=== PATIENT | male | born 1980 | race Caucasian/White ===

== ENCOUNTER 2020-08-01 15:01 | Outpatient (REF) | payer MEDICAID, SELFPAY ==
[2020-08-01 20:35] LABS: HCT 43.4 % (40.0-50.0); HGB 14.3 g/dL (13.5-17.5); MCH 32.3 pg (27.0-33.0); MCHC 32.9 % (32.0-36.0); MPV 10.5 fL (8.0-11.0); Platelet Count 201 10^3/uL (130-400); RBC 4.43 10^6/uL (4.36-5.78); RDW 14.3 % (11.8-14.1); RDW-SD 52.2 fL; WBC 6.14 10^3/uL (4.4-10.8)
[2020-08-01 21:17] LABS: AST 102 U/L (15-37); Alkaline Phosphatase 141 U/L (46-116); Anion Gap 12.4 mmol/L (3-11); BUN 19 mg/dL (7-18); Bilirubin, Total 0.4 mg/dL (0.2-1.0); CO2 26.6 mmol/L (21.0-32.0); CREATININE 0.8 mg/dL (0.70-1.30); Calcium 9.1 mg/dL (8.5-10.1); Calculated LDL 165 mg/dL (<100); Chloride 105 mmol/L (98-107); Cholesterol 180 mg/dL (<200); Glucose 88 mg/dL (74-106); HDL Cholesterol 5 mg/dL (40-60); Sodium 144 mmol/L (136-145); TSH (W/Ref FT4) 2.03 uIU/mL (0.36-3.74); Total Protein 7.1 g/dL (6.4-8.2); Triglyceride 54 mg/dL (<150); Vitamin B12 692 pg/mL (193-986)
[2020-08-01 21:19] LABS: ALT < 6 U/L (16-63)
[2020-08-03 04:34] LABS: Vitamin D 25 Total 28.1 ng/mL (30-100)
== END 2020-08-01 15:02 | disposition home or self-care (01) ==
LOC: NCHCN 15:01
PROVIDERS: PCP Family Medicine; Visit Provider Nurse Practitioner Family
DX: F41.9 Anxiety disorder, unspecified (principal); F32.9 Major depressive disorder, single episode, unspecified; E78.89 Other lipoprotein metabolism disorders; E55.9 Vitamin D deficiency, unspecified; Z86.39 Personal history of other endocrine, nutritional and metabolic disease
CPT/HCPCS: 80053; 80061; 82306; 85027; 82607; 84443

== ENCOUNTER 2020-09-26 08:56 | Outpatient (REF) | payer MEDICAID, SELFPAY ==
[2020-09-26 13:52] LABS: ALT 28 U/L (16-63); AST 23 U/L (15-37); Albumin 3.6 g/dL (3.4-5.0); Alkaline Phosphatase 114 U/L (46-116); Bilirubin, Direct 0.2 mg/dL (0.0-0.2); Bilirubin, Total 0.6 mg/dL (0.2-1.0); Total Protein 6.8 g/dL (6.4-8.2)
[2020-09-26 14:05] LABS: GGT 53 U/L (15-85)
[2020-09-28 04:58] LABS: Vitamin D 25 Total 41.8 ng/mL (30-100)
== END 2020-09-26 08:57 | disposition home or self-care (01) ==
LOC: NCHCN 08:56
PROVIDERS: PCP Family Medicine; Visit Provider Nurse Practitioner Family
DX: R74.8 Abnormal levels of other serum enzymes (principal); E55.9 Vitamin D deficiency, unspecified
CPT/HCPCS: 80076; 82306; 82977